=== PATIENT | male | born 1960 | race Caucasian/White ===

== ENCOUNTER 2017-07-04 08:36 | Observation (INO) | payer OTHER ==
[~2017-07-04] VITALS: Ht 182.9 cm; Wt 86.2 kg
[~2017-07-04 08:36] MED LIST: ADVIL200 MG PO; HYDROCODON-ACE1 EA10 PO; PEPCID20 MG PO
--- NOTE | 2017-07-04 12:32 | NUR ---
REPORT RECEIVED FROM ED NURSE ESTEBAN. PATIENT TO FLOOR VIA STRETCHER, WALKED TO HOSPITAL BED WITH NO DIFFICULTY. PATIENT ORIENTED TO ROOM. ADMISSION ASSESSMENT COMPLETE, AND NEURO ASSESSMENT ALSO COMPLETED. NIH SCORE IS 1. LUNGS CLEAR, HR REGULAR, SKIN INTACT, POSITIVE BOWEL TONES. PATIENT REPORTS MILD NUMBNESS ON THE RIGHT CHEEK, AND DECREASED STRENGTH ON THE RIGHT ARM. PATIENT DENIES PAIN. ATE LUNCH IN THE ED. NO ACUTE DISTRESS. WILL CONTINUE TO MONITOR.
--- NOTE | 2017-07-04 13:01 | NUR ---
PATIENT OFF THE FLOOR TO CT.
--- NOTE | 2017-07-04 14:01 | NUR ---
MED REC COMPLETE. PATIENT DOES NOT TAKE ANY HOME MEDICATIONS.
--- NOTE | 2017-07-04 14:33 | NUR ---
ULTRA SOUND TECH IN ROOM.
--- NOTE | 2017-07-04 18:26 | NUR ---
PATIENT RESTING IN BED WATCHING TV. FRESH ICE WATER GIVEN. CALL BUTTON IN REACH. NO OTHER NEEDS AT THIS TIME.
--- NOTE | 2017-07-04 18:30 | NUR ---
PATIENT HAD A FAIR DAY. STILL REPORTED MILD NUMBNESS ON THE RIGHT CHEEK. RIGHT ARM WEAKNESS. MILD SLURRED SPEECH. WALKED WITH PHYSICAL THERAPIST TWICE THIS PM. PATIENT IS A&O X4. NO PROBLEM WITH SWALLOWING. NO VISION IMPAIREMENT.IV SITE PATENT AND SL. CAROTIDE ULTRA-SOUND AND BRAIN MRI DONE TODAY.
--- NOTE | 2017-07-04 20:00 | NUR ---
RECEIVED REPORT AT 1900. FOUND PT IN BED RESTING. PT DENIED ANY PAIN OR CHANGE IN NUMBNESS AND TINGLING.
--- NOTE | 2017-07-04 22:59 | NUR ---
ALL LOBES ARE CLEAR. PERRLLA IS POSITIVE. PT HAS MILD RIGHT SIDED FACIAL DROOP. SPEECH IS CLEAR. ALL EXTREMITIES HAVE EQUAL STRENGTH. PT STILL HAS RIGHT SIDED NUMBNESS TO FACE. V/S ARE WDL. PT IS ALERT AND ORIENTED X4.
--- NOTE | 2017-07-04 23:26 | EKG ---
[facility] [address] [facility] [place] [address] Signed Sinus bradycardia Otherwise normal ECG No previous ECGs available Confirmed by SOFÍA LEE MD ([id number]) on 07/04/2017 11:25:53 PM Electronically Signed By: SOFÍA LEE MD 07/04/17 2326 PATIENT NAME: CHUCK SCHWARTZ Electrocardiogram DATE OF : 56 PHYSICIAN: SOFÍA LEE MD REPORT #: [id number] REPORT IS CONFIDENTIAL AND NOT TO BE RELEASED WITHOUT AUTHORIZATION
--- NOTE | 2017-07-05 00:38 | NUR ---
PT IS SLEEPING AT THIS TIME.
--- NOTE | 2017-07-05 03:18 | NUR ---
PT IS SLEEPING.
--- NOTE | 2017-07-05 05:25 | NUR ---
AT START OF SHIFT PT HAD SOME RIGHT SIDED FACIAL DROOP AND NUMBNESS ON HIS RIGHT CHEEK. PT STATED THAT NUMBNESS IN RIGHT ARM HAS SUBSIDED. AT 0000, SECOND NEURO, FACIAL DROOP WAS NOT PRESENT. PT DOES STILL HAVE NUMBNESS IN RIGHT CHEEK. ALL FOUR EXTREMETIES HAVE GOOD STRENGTH. V/S ARE WDL SO FAR. PT DENIES PAIN, AT TIMES PT HAD BRADYCARDIA 40-50 WHILE SLEEPING.
--- NOTE | 2017-07-05 07:10 | NUR ---
BEDSIDE REPORT RECEIVED FROM JOVANY LU. PT AWAKE LYING IN BED, ALERT, ORIENTED. URINE SAMPLE OBTAINED. PT GIVEN CALL LIGHT, HAS NO REQUESTS AT THIS TIME. WILL CONTINUE TO MONITOR.
--- NOTE | 2017-07-05 08:36 | NUR ---
PT MORNING ASSESSMENT COMPLETE. PT AWAKE, ALERT, ORIENTED X3. PT STRONG BILATERALLY UPPER AND LOWER EXTREMITIES. SENSATION BILATERALLY, NUMBNESS NOTED IN RIGHT HAND AND RIGHT CHEEK CLOSE TO MOUTH. PT HAS NO FACIAL DROOP. LUNGS CLEAR, BOWEL TONES ACTIVE. PT AT BEDSIDE. CALL LIGHT WITH PT. WILL CONTINUE TO MONITOR.
--- NOTE | 2017-07-05 10:12 | NUR ---
PT OUT OF ROOM, WORKING WITH PHYSICAL THERAPY.
--- NOTE | 2017-07-05 11:06 | NUR ---
PT NOW BACK IN ROOM AFTER PT. PT SLEEPING IN BED, BREATHING EQUALLY BILATERALLY. WILL CONTINUE TO MONITOR.
[2017-07-05] MEDS ORDERED: LIPITOR20 MG PO (11:37)
[2017-07-05] MEDS ORDERED: ASPIRIN EC81 MG PO (11:37)
--- NOTE | 2017-07-05 11:37 | NUR ---
CHECKED ON PT, PT NOT WANTING TO ORDER LUNCH AT THIS TIME, WILL EAT WHEN HE GETS HOME DISCHARGING. OFFERED SNACK, BROUGHT PT PUDDING AND SANDRA CRACKERS. PT HAD NO ADDITIONAL REQUESTS AT THIS TIME.
--- NOTE | 2017-07-05 12:10 | NUR ---
FAXED CHART NOTES TO [facility] OP PT INCLUDING FACESHEET, ORDER, ER NOTES, H AND P, DC SUMMARY, IMAGING, LABS, PT AND OT EVAL AND NOTES, DC PACKET. TALKED WITH TRE AT [facility] PT.
--- NOTE | 2017-07-05 12:48 | NUR ---
PT OFF FLOOR, DISCHARGED TO HOME WITH . DISCHARGE INFORMATION GIVEN TO PT FROM PHARMACY AND RN. PT'S QUESTIONS ANSWERED.
--- NOTE | 2017-07-05 13:44 | NUR ---
PT SITTING ON SIDE OF BED, DRESSED AND WAITING FOR HIS TO COME AND DC HIM. I FOUND HIM ALERT AND ORIENTED. GOD BLESS HIM, WILL FOLLOW NEEDED
== END 2017-07-05 12:45 | disposition home or self-care (01) ==
LOC: ED 08:36 → MS 08:38 → ED 11:03 → MS 11:03
PROVIDERS: ADMIT Internal Medicine
DX: I63.8 Other cerebral infarction (principal); R20.1 Hypoesthesia of skin; R90.0 Intracranial space-occupying lesion found on diagnostic imaging of central nervous system; R93.0 Abnormal findings on diagnostic imaging of skull and head, not elsewhere classified; T66.XXXS Radiation sickness, unspecified, sequela; Y84.2 Radiological procedure and radiotherapy as the cause of abnormal reaction of the patient, or of later complication, without mention of misadventure at the time of the procedure; Z85.841 Personal history of malignant neoplasm of brain
CPT/HCPCS: 70450; 70551; 71010; 80053; 80061; 83036; 84484; 85025; 85610; 85730; 93005; 93010; 93880; 96372; 97116; 97161; 97530; 99285; G0378; G8978; G8979; G8980; J1650